=== PATIENT | female | born 1960 | race Caucasian/White ===

== ENCOUNTER → 2018-02-22 | Outpatient (CLI) | payer OTHER ==
[~2018-02-22] MED LIST: IBU200 PO; LEV75 PO; LEVO100T95 PO; LOR5 PO; TUM500 PO
--- NOTE | 2018-02-23 08:30 | RADIOLOGY IMAGING REPORT ---
FACILITY: [facility] - [place] PATIENT NAME: JUAN CAMACHO : [id number] MR: [id number] V: [id number] EXAM DATE: ORDERING PHYSICIAN: LEVAR GARCIA TECHNOLOGIST: Riri Fuentes PROCEDURE:BILATERAL DIGITAL SCREENING MAMMOGRAM WITH CAD ASSISTED INTERPRETATION & 3D TOMOSYNTHESIS COMPARISON:Prior mammograms 02/21/17, 02/16/16, 01/21/15, 01/15/14, 01/11/13, 07/21/11. INDICATIONS:SCREENING FINDINGS: A small amount of fibroglandular tissue is seen throughout the breasts. The parenchymal pattern has remained stable allowing for difference in mammographic technique & patient positioning. There is no evidence of malignant appearing mass, malignant appearing calcifications or other secondary sign of malignancy in either breast. Surgical clip in the upper outer quadrant of the Right breast again seen. DIAGNOSTIC CATEGORY 2--BENIGN FINDING. RECOMMENDATIONS: ROUTINE MAMMOGRAM AND CLINICAL EVALUATION. IMPRESSION: BIRADS 2: Benign finding No significant abnormality is seen. Dictated by: Janeth Shields M.D. on 02/22/2018 at 16:45 Transcribed by: DIDIER on 02/23/2018 at 7:58 Approved by: Janeth Shields M.D. on 02/23/2018 at 8:29 [facility]
== END ==
LOC: MAMO 01:29
PROVIDERS: ATTEND Obstetrics & Gynecology
DX: Z12.31 Encounter for screening mammogram for malignant neoplasm of breast (principal)
CPT/HCPCS: 77063; 77067

== ENCOUNTER → 2019-04-04 | Outpatient (CLI) | payer OTHER ==
--- NOTE | 2019-04-04 16:04 | RADIOLOGY IMAGING REPORT ---
FACILITY: [facility] PATIENT NAME: JUAN CAMACHO : [id number] MR: [id number] V: [id number] EXAM DATE: ORDERING PHYSICIAN: NOAH AG TECHNOLOGIST: Riri Fuentes PROCEDURE: BILATERAL DIGITAL SCREENING MAMMOGRAM WITH CAD ASSISTED INTERPRETATION & 3D TOMOSYNTHESIS REASON FOR STUDY: Screening FAMILY HISTORY OF BREAST CANCER: Maternal Grandmother BREAST PROCEDURES/TREATMENTS: Benign stereotactic biopsy Right breast COMPARISON: 02/22/18, 02/21/17, 02/16/16, 01/21/15, 01/15/14, 01/11/13 VIEWS OBTAINED: Bilateral 2D & 3D full field CC & MLO projections BREAST DENSITY: The breasts are almost entirely fatty. MAMMOGRAM FINDINGS: There is a surgical clip in the upper outer quadrant of the Right breast in the middle depth. The parenchymal pattern has remained stable allowing for difference in mammographic technique & patient positioning. IMPRESSION: BIRADS 2: Benign finding. DIAGNOSTIC CATEGORY 2--BENIGN FINDING. RECOMMENDATIONS: ROUTINE MAMMOGRAM AND CLINICAL EVALUATION. Dictated by: Janeth Shields M.D. on 04/04/2019 at 10:21 Transcribed by: YA on 04/04/2019 at 11:30 Approved by: Janeth Shields M.D. on 04/04/2019 at 16:03 [facility]
== END ==
LOC: MAMO 01:03
PROVIDERS: ATTEND Obstetrics & Gynecology
DX: Z12.31 Encounter for screening mammogram for malignant neoplasm of breast (principal)
CPT/HCPCS: 77063; 77067